=== PATIENT | female | born 1970 | race Caucasian/White ===

== ENCOUNTER 2017-02-23 14:20 | Emergency (ER) | payer MEDICAID ==
[~2017-02-23] VITALS: Ht 170.2 cm; Wt 83.5 kg
[2017-02-23] MEDS ORDERED: LIORESAL10 MG PO (18:31)
[2017-02-23] MEDS ORDERED: KLONOPIN0.5 MG PO (18:37)
[2017-02-23] MEDS ORDERED: ASPIRIN81 MG PO (18:43)
[2017-02-23] MEDS ORDERED: DEPAKOTE ER500 MG PO (18:43)
[2017-02-23] MEDS ORDERED: KEPPRA750 MG PO (18:45)
[2017-02-23] MEDS ORDERED: CARAFATE1 GM PO (18:46)
[2017-02-23] MEDS ORDERED: PRILOSEC40 MG PO (18:46)
[2017-02-23] MEDS ORDERED: LIPITOR10 M1 PO (18:47)
[2017-02-23] MEDS ORDERED: SYMBICORT 160-4.6 GM INH (18:48)
[2017-02-23] MEDS ORDERED: ADVAIR DIS14 PUFF/I1 INH (18:49)
[2017-02-23] MEDS ORDERED: PROVENTIL HFA6.7 GM INH (18:49)
[2017-02-23] MEDS ORDERED: NORCO 325-5 MG1 TAB PO (18:50)
== END 2017-02-23 17:55 | disposition short-term general hospital (02) ==
LOC: ER 14:20
DX: R42 Dizziness and giddiness (principal); G43.909 Migraine, unspecified, not intractable, without status migrainosus; R56.9 Unspecified convulsions; Z86.73 Personal history of transient ischemic attack (TIA), and cerebral infarction without residual deficits; F17.210 Nicotine dependence, cigarettes, uncomplicated
CPT/HCPCS: G0477; J1885; J2405; J3360